=== PATIENT | male | born 1965 | race Caucasian/White ===

== ENCOUNTER 2017-04-26 20:06 | Inpatient (IN) | payer MEDICAID ==
[~2017-04-26] VITALS: Ht 185.4 cm; Wt 93.4 kg
[~2017-04-26 20:06] MED LIST: BACTRIM-DS1 EA PO; CELEBREX200 MG PO; LORAZEPAM0.5 MG PO; NORCO 10-325 T1 EACH PO; NORCO 5-325 TA1 EACH PO; PEPCID20 MG PO; PEPCID40 MG PO; TRAMADOL HCL50 MG PO; TRAZODONE HCL100 MG PO; TRILEPTAL150 MG PO; TRILEPTAL300 MG PO
[2017-04-26 20:26] VITALS: BP 147/85
[2017-04-26] MEDS ORDERED: Morphine Sulfate 4mg/ml Inj IM ONE (20:30)
[2017-04-26] MEDS ORDERED: Ketorolac 30mg Inj IM ONE (20:30)
[2017-04-26] MEDS ORDERED: HYDROmorphone 1mg/ml Carpuject IVP ONE (21:45)
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
[2017-04-26 22:06] VITALS: BP 143/77
[2017-04-26 22:43] LABS: BASOPHILS % (AUTO) 1.1 % (0.0-2.0); EOSINOPHILS % (AUTO) 2.9 % (0.0-3.0); LYMPHOCYTES % (AUTO) 29.3 % (20.0-45.0); MEAN CORPUSCULAR HEMOGLOBIN 31.2 PG (27.0-31.0); MEAN CORPUSCULAR HGB CONC 32.9 G/DL (32.0-36.0); MEAN CORPUSCULAR VOLUME 95 FL (80-99); MEAN PLATELET VOLUME 7.1 FL (6.5-10.1); MONOCYTES % (AUTO) 11.6 % (1.0-10.0); NEUTROPHILS % (AUTO) 55.1 % (45.0-75.0); PLATELET COUNT 209 K/UL (150-450); RED BLOOD COUNT 4.23 M/UL (4.70-6.10); RED CELL DISTRIBUTION WIDTH 12.9 % (11.6-14.8); WHITE BLOOD COUNT 7.3 K/UL (4.8-10.8)
[2017-04-26 23:13] LABS: ALANINE AMINOTRANSFERASE 125 U/L (12-78); ALBUMIN/GLOBULIN RATIO 1.2 (1.0-2.7); ANION GAP 10 mmol/L (5-15); ASPARTATE AMINO TRANSFERASE 271 U/L (15-37); CARBON DIOXIDE 26 MMOL/L (21-32); CHLORIDE 108 MMOL/L (98-107); CREATININE 0.9 MG/DL (0.55-1.30); GLOMERULAR FILTRATION RATE > 60 mL/min (>60); POTASSIUM 3.5 MMOL/L (3.5-5.1); SODIUM 144 MMOL/L (136-145)
[2017-04-26] MEDS ORDERED: Miralax 17gm pkt ORAL PRN (23:45)
[2017-04-26] MEDS ORDERED: Mylanta II UD 30ml ORAL PRN (23:45)
[2017-04-27] VITALS (8 sets, daily range): BP systolic 106–153; BP diastolic 61–98
[2017-04-27] MEDS: Morphine Sulfate 4mg/ml Inj IVP PRN ×2 (02:20→08:18)
[2017-04-27] MEDS: Zolpidem 5mg tab ORAL PRN (03:59)
[2017-04-27 08:02] LABS: BASOPHILS % (AUTO) 1.6 % (0.0-2.0); EOSINOPHILS % (AUTO) 7.2 % (0.0-3.0); LYMPHOCYTES % (AUTO) 34.7 % (20.0-45.0); MEAN CORPUSCULAR HEMOGLOBIN 31.4 PG (27.0-31.0); MEAN CORPUSCULAR HGB CONC 33.8 G/DL (32.0-36.0); MEAN CORPUSCULAR VOLUME 93 FL (80-99); MEAN PLATELET VOLUME 7.2 FL (6.5-10.1); MONOCYTES % (AUTO) 13.1 % (1.0-10.0); NEUTROPHILS % (AUTO) 43.5 % (45.0-75.0); PLATELET COUNT 188 K/UL (150-450); RED BLOOD COUNT 4.13 M/UL (4.70-6.10)
[2017-04-27] MEDS: Meloxicam 15 MG TAB ORAL SCH (08:17)
[2017-04-27 08:18] LABS: ALANINE AMINOTRANSFERASE 122 U/L (12-78); ALBUMIN/GLOBULIN RATIO 1.1 (1.0-2.7); ANION GAP 8 mmol/L (5-15); ASPARTATE AMINO TRANSFERASE 212 U/L (15-37); CALCIUM 8.6 MG/DL (8.5-10.1); CARBON DIOXIDE 27 MMOL/L (21-32); CHLORIDE 109 MMOL/L (98-107); CREATININE 0.9 MG/DL (0.55-1.30); GLOMERULAR FILTRATION RATE > 60 mL/min (>60); POTASSIUM 3.4 MMOL/L (3.5-5.1); SODIUM 144 MMOL/L (136-145); TOTAL PROTEIN 6.3 G/DL (6.4-8.2)
[2017-04-27] MEDS: OXcarbazepine 150mg tab ORAL SCH ×2 (08:18→18:51)
[2017-04-27] MEDS: Heparin 5000 units/ml inj SUBQ SCH ×2 (08:21→21:22)
[2017-04-27 08:24] LABS: THYROID STIMULATING HORMONE 2.553 uiU/mL (0.360-3.740)
--- NOTE | 2017-04-27 08:51 | Consultation ---
History of Present Illness General Chief Complaint: Present Illness Allergies: Coded Allergies: No Known Allergies (Unverified , 07/05/12) Medication History Scheduled Celecoxib* (Celebrex*), 200 MG PO BID, (Reported) Celecoxib* (Celebrex*), 200 MG PO BID, (Reported) Famotidine (Pepcid), 40 MG PO BID, (Reported) Famotidine (Pepcid), 20 MG PO BID, (Reported) Hydrocodone Bit/Acetaminophen 10-325* ([place] 10-325*), 1 TAB PO Q6H, (Reported) Hydrocodone Bit/Acetaminophen 5-325* ([place] 5-325*), 1 TAB PO Q6H Oxcarbazepine (Trileptal), 450 MG PO BID, (Reported) Oxcarbazepine (Oxcarbazepine), 450 MG PO BID, (Reported) Tramadol Hcl* (Ultram*), 100 MG PO Q6H, (Reported) Trazodone Hcl* (Desyrel*), 100 MG PO QHS, (Reported) Trimethoprim/Sulfamethoxazole (Bactrim Ds Tablet), 1 TAB PO BID Scheduled PRN Lorazepam* (Lorazepam*), 0.5 MG PO TID PRN, (Reported) Patient History Healthcare decision maker Resuscitation status Full Code Advanced Directive on File No Physical Exam Last 24 Hour Vital Signs Date Time Temp Pulse Resp B/P (MAP) Pulse Ox O2 Delivery O2 Flow Rate FiO2 04/27/17 08:40 97.8 67 20 106/68 96 Room Air 04/27/17 04:17 98.7 75 20 121/64 97 Room Air 04/27/17 02:00 98.9 80 19 153/98 97 Room Air 04/27/17 01:44 98.1 67 18 141/87 99 Room Air 04/27/17 01:30 98.1 67 18 141/87 99 Room Air 04/27/17 00:06 98.1 65 16 138/91 99 Room Air 04/26/17 22:06 98.1 92 16 143/77 98 Room Air 04/26/17 20:26 98.1 89 16 147/85 97 Room Air 04/26/17 20:13 98.1 89 16 147/85 97 Room Air Intake and Output 04/27/17 04/28/17 19:00 07:00 Intake Total 320 ml Balance 320 ml Intake Oral 320 ml Laboratory Tests Test 04/26/17 21:56 04/26/17 23:24 04/27/17 07:50 White Blood Count 7.3 K/UL (4.8-10.8) 5.0 K/UL (4.8-10.8) Red Blood Count 4.23 M/UL (4.70-6.10) L 4.13 M/UL (4.70-6.10) L Hemoglobin 13.2 G/DL (14.2-18.0) L 13.0 G/DL (14.2-18.0) L Hematocrit 40.1 % (42.0-52.0) L 38.4 % (42.0-52.0) L Mean Corpuscular Volume 95 FL (80-99) 93 FL (80-99) Mean Corpuscular Hemoglobin 31.2 PG (27.0-31.0) H 31.4 PG (27.0-31.0) H Mean Corpuscular Hemoglobin Concent 32.9 G/DL (32.0-36.0) 33.8 G/DL (32.0-36.0) Red Cell Distribution Width 12.9 % (11.6-14.8) 13.0 % (11.6-14.8) Platelet Count 209 K/UL (150-450) 188 K/UL (150-450) Mean Platelet Volume 7.1 FL (6.5-10.1) 7.2 FL (6.5-10.1) Neutrophils (%) (Auto) 55.1 % (45.0-75.0) 43.5 % (45.0-75.0) L Lymphocytes (%) (Auto) 29.3 % (20.0-45.0) 34.7 % (20.0-45.0) Monocytes (%) (Auto) 11.6 % (1.0-10.0) H 13.1 % (1.0-10.0) H Eosinophils (%) (Auto) 2.9 % (0.0-3.0) 7.2 % (0.0-3.0) H Basophils (%) (Auto) 1.1 % (0.0-2.0) 1.6 % (0.0-2.0) Sodium Level 144 MMOL/L (136-145) 144 MMOL/L (136-145) Potassium Level 3.5 MMOL/L (3.5-5.1) 3.4 MMOL/L (3.5-5.1) L Chloride Level 108 MMOL/L (98-107) H 109 MMOL/L (98-107) H Carbon Dioxide Level 26 MMOL/L (21-32) 27 MMOL/L (21-32) Anion Gap 10 mmol/L (5-15) 8 mmol/L (5-15) Blood Urea Nitrogen 12 mg/dL (7-18) 12 mg/dL (7-18) Creatinine 0.9 MG/DL (0.55-1.30) 0.9 MG/DL (0.55-1.30) Estimat Glomerular Filtration Rate > 60 mL/min (>60) > 60 mL/min (>60) Glucose Level 116 MG/DL (74-106) H 87 MG/DL (74-106) Calcium Level 9.0 MG/DL (8.5-10.1) 8.6 MG/DL (8.5-10.1) Total Bilirubin 0.3 MG/DL (0.2-1.0) 0.4 MG/DL (0.2-1.0) Aspartate Amino Transf (AST/SGOT) 271 U/L (15-37) H 212 U/L (15-37) H Alanine Aminotransferase (ALT/SGPT) 125 U/L (12-78) H 122 U/L (12-78) H Alkaline Phosphatase 96 U/L (46-116) 80 U/L (46-116) Total Protein 7.0 G/DL (6.4-8.2) 6.3 G/DL (6.4-8.2) L Albumin 3.8 G/DL (3.4-5.0) 3.3 G/DL (3.4-5.0) L Globulin 3.2 g/dL 3.0 g/dL Albumin/Globulin Ratio 1.2 (1.0-2.7) 1.1 (1.0-2.7) Urine Opiates Screen Negative (NEGATIVE) Urine Barbiturates Screen Negative (NEGATIVE) Phencyclidine (PCP) Screen Negative (NEGATIVE) Urine Amphetamines Screen Negative (NEGATIVE) Urine Benzodiazepines Screen Negative (NEGATIVE) Urine Cocaine Screen Negative (NEGATIVE) Urine Marijuana (THC) Screen Negative (NEGATIVE) Thyroid Stimulating Hormone (TSH) 2.553 uiU/mL (0.360-3.740) Height (Feet): 6 Height (Inches): 1.00 Weight (Pounds): 206 Medications Current Medications Medications (Trade) Dose Ordered Sig/Brice Route PRN Reason Start Time Stop Time Status Last Admin Dose Admin Acetaminophen (Tylenol) 650 mg Q4H PRN ORAL fever 04/26/17 23:45 05/26/17 23:44 Al Hydroxide/Mg Hydroxide (Mylanta II) 30 ml Q6H PRN ORAL dyspepsia 04/26/17 23:45 05/26/17 23:44 Dextrose (Dextrose 50%) STAT PRN IV Hypoglycemia 04/26/17 23:45 05/26/17 23:44 Heparin Sodium (Porcine) (Heparin 5000 units/ml) 5,000 units EVERY 12 HOURS SUBQ 04/27/17 09:00 05/27/17 08:59 04/27/17 08:21 Lorazepam (Ativan 2mg/ml 1ml) 0.5 mg Q4H PRN IV For Anxiety 04/26/17 23:45 05/03/17 23:44 Meloxicam (Mobic) 15 mg DAILY ORAL 04/27/17 09:00 05/27/17 08:59 04/27/17 08:17 Morphine Sulfate (Morphine Sulfate) 4 mg Q4H PRN IVP For Pain 7-10 04/26/17 23:45 05/03/17 23:44 04/27/17 08:18 Ondansetron HCl (Zofran) 4 mg Q6H PRN IVP Nausea & Vomiting 04/26/17 23:45 05/26/17 23:44 Oxcarbazepine (Trileptal) 450 mg BID ORAL 04/27/17 09:00 05/27/17 08:59 04/27/17 08:18 Polyethylene Glycol (Miralax) 17 gm HSPRN PRN ORAL Constipation 04/26/17 23:45 05/26/17 23:44 Trazodone HCl (Desyrel) 100 mg QHS ORAL 04/27/17 21:00 05/27/17 20:59 Zolpidem Tartrate (Ambien) 5 mg HSPRN PRN ORAL Insomnia 04/26/17 23:45 05/03/17 23:44 04/27/17 03:59 Assessment/Plan Assessment/Plan (1) Lumbar Radiculopathy (2) Lumbar Herniated disc (3) Lumbago Seen Dictated DAYRON TUBBS Apr 27, 2017 08:51
[2017-04-27] MEDS: LORazepam Inj 2mg/ml 1ml IV PRN (08:59)
[2017-04-27] MEDS ORDERED: celeBREX 200mg Cap **SURGERY PATIENTS ONLY ORAL SCH (09:00)
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
--- NOTE | 2017-04-27 16:40 | Consultation ---
Consult Note Consult Note [id number] TEAGAN KERR M.D. Apr 27, 2017 16:40
[2017-04-27] MEDS ORDERED: HYDROmorphone 1mg/ml Carpuject IVPB PRN (18:45)
[2017-04-27 18:57] LABS: AMMONIA 27 umol/L (11.2-31.7)
[2017-04-27 20:19] LABS: ALANINE AMINOTRANSFERASE 147 U/L (12-78); ASPARTATE AMINO TRANSFERASE 210 U/L (15-37); BILIRUBIN,DIRECT < 0.1 MG/DL (0.0-0.3); PSA TOTAL 2.9 ng/mL (0.0-4.0); TOTAL PROTEIN 6.4 G/DL (6.4-8.2)
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
[2017-04-27] MEDS: HYDROmorphone 1 MG in NS 55 ML IVPB PRN (20:51)
[2017-04-27] MEDS ORDERED: TraZODone 100mg tab ORAL SCH (21:00)
--- NOTE | 2017-04-27 22:00 | Consultation ---
DATE OF CONSULTATION: 04/27/2017 NEUROLOGICAL CONSULTATION CONSULTING PHYSICIAN: Trae Guerrero M.D. REQUESTING PHYSICIAN: Nina Bowman M.D. HISTORY OF PRESENT ILLNESS: This 51-year-old male seen in neurological consultation to evaluate intractable low back pain. According to the patient, he has a long history of pain that dates back to 1994 when he had a crush injury to his left foot ankle, developed reflex sympathetic dystrophy and left foot drop. With continuous physical therapy, symptoms gradually improved, but still remaining with the left foot drop. Then, around 2001, with no obvious reason, he started to develop intermittent low back pain, which became excruciating starting approximately in December of this year with no obvious reason. Pain became severe, interfering with his daily activities. He was placed on oxycodone, evaluated by Pain Management, had an epidural block, which relieved the pain for two to two and a half months, but now pain is back to be quite severe. The patient was sent into emergency room. Since he moved in from [place] and presented with severe pain, he requires to establish a new treatment team. On arrival, vital signs included blood pressure 147/85 and temperature 98.1. Most recent MRI of the lumbar spine was obtained in [place] on 01/30/2017. This revealed annular disk bulging L3-L4 and L4-L5, but also central disk herniation at L5-S1 superimposed on annular disk bulge impinging upon the thecal sac and right and left S1 nerve roots. There was a mild bilateral foraminal stenosis. There was no bone abnormalities and normal conus medullaris. The patient indicates that over the last few months, he developed a pulling sensation in the right groin region, but also severe "like a torch" burning sensation in both feet, now progressing. Following current admission, lab work was obtained revealing mild anemia, hemoglobin 13.2, and hematocrit 40.1. Chemistry panel with glucose 116, elevated AST 271, ALT 125, and low albumin 3.3. Toxicology was negative. PAST MEDICAL HISTORY: This includes a history of bipolar disorder. FAMILY HISTORY: Noncontributory. SOCIAL HISTORY: The patient worked previously as an actor. Last job was in summer. He denies alcohol or illicit drug abuse. He was previously smoking, but stopped few years ago. He had a homosexual contact, but has negative HIV, maintained only on preventative treatment. MEDICATIONS: His treatment list included acyclovir, Soma, Neurontin, Lamictal, Naprosyn, Zofran, Roxicodone 5 mg, Protonix, amylase, Mycostatin, Elavil in the past, Truvada, and Atarax. REVIEW OF SYMPTOMS: A 12-point review of symptoms was obtained and it was negative except those in HPI. Now, the patient also informs me that he has some aches and pains in his upper back and neck, at times headaches. PHYSICAL EXAMINATION: GENERAL: A well-developed, well-nourished man, found to be asleep. He was arousable. VITAL SIGNS: His vital signs now remained stable. He is afebrile. HEENT: Head is normocephalic. No evidence of trauma. Eyes, ears, and throat are clear. NECK: Supple. No meningeal signs. MUSCULOSKELETAL EXAMINATION: Unremarkable except palpable tenderness, predominantly on percussion in the lumbar paraspinal region, but also there is a seizure at the distal aspect of left lower extremity, tenderness on palpation of right groin region. No deformities noted. Peripheral pulses 1+ and symmetric. MENTAL STATUS: The patient is alert and oriented x3 with no evidence of aphasia or apraxia. Cognitive function normal. Emotionally labile, tense, and anxious. CRANIAL NERVE II: Pupils are both responding to light and accommodation. Extraocular movements intact. No nystagmus. CRANIAL NERVE V: Normal corneal responses. CRANIAL NERVE VII: No facial asymmetry. CRANIAL NERVE VIII: Normal hearing. CRANIAL NERVES IX THROUGH XII: Within normal limits. MOTOR EXAMINATION: Normal muscle tone. Strength 5/5 in all extremities except left footdrop. Deep tendon reflexes 1+ bilaterally in both upper extremities, reduced 1+ both knee jerks, absent both ankle jerks. Plantar response is flexor. SENSORY EXAMINATION: Normal to pinprick and light touch, except dysesthesia and low pinprick sensation to left foot and ankle. Gait is stable, but limping to the left. Using orthotic shoes. IMPRESSION: 1. Chronic pain syndrome, opiate dependent. 2. Persistent severe low back pain in the setting of a mild-moderate lumbar spondylosis, predominantly L5-S1. 3. Sensory polyneuropathy, etiology undetermined. 4. Abnormal liver enzymes. 5. Bipolar disorder. 6. Status post a left foot crush injury with residual left foot drop and reflex sympathetic dystrophy. RECOMMENDATION: Laboratory work to include sedimentation rate, MESHA, B12, folate, thyroid function, glycated hemoglobin, hepatitis panel, HIV, heavy metal screen, serum protein electrophoresis, and PSA. It is unavailable at this facility, but outpatient EMG and nerve conduction study of both lower extremities will be considered. Treatment will include Elavil 50 mg at bedtime. Continue with Lamictal 200 mg daily. Start on muscle relaxants (Flexeril 10 mg t.i.d.). Continue with opiates only per Pain Management. The patient was offered nonsteroidal agents, but he refused stating that he would like his stomach to get some rest from many years of use of nonsteroidals. PT and OT assessment. Thank you for allowing me to see this interesting patient in neurological consultation. Trae Guerrero M.D. DR: ROLANDO JOB#: [id number] CC:
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
[2017-04-28 04:00] VITALS: BP 138/78
--- NOTE | 2017-04-28 08:32 | General Progress Note ---
Assessment/Plan Assessment/Plan (1) Lumbar Radiculopathy (2) Lumbar Herniated disc (3) Lumbago MRI pending. Pt will be continued on Percocet and Dilaudid. D/w Dr. Siddiqui and he concurred. Subjective Date patient seen: Apr 28, 2017 Time patient seen: 07:15 - am Allergies: Coded Allergies: No Known Allergies (Unverified , 07/05/12) Subjective REVIEW OF SYSTEMS: Denies rash, fever, chills, sweating, dizziness, drowsiness, sore throat, or change in weight. No shortness of breath, chest pain, or cough. No nausea, vomiting, diarrhea, or blood in the stool or urine. No bowel or bladder incontinence. No dysuria. He is complaining of low back pain. SUBJECTIVE: Patient is in bed and has no signs of distress or pain at this time. He was started on Dilaudid 1mg IVPB Q6H PRN severe pain and an MRI of the lumbar spine was ordered due to the severity of his pain. Objective Last 24 Hour Vital Signs Date Time Temp Pulse Resp B/P (MAP) Pulse Ox O2 Delivery O2 Flow Rate FiO2 04/28/17 04:00 98.0 79 21 138/78 98 Room Air 04/27/17 21:26 98.0 66 20 106/61 97 Room Air 04/27/17 16:23 98.1 77 19 109/71 98 Room Air 04/27/17 15:45 98.4 04/27/17 12:40 98.4 74 20 148/80 95 Room Air 04/27/17 08:40 97.8 67 20 106/68 96 Room Air Laboratory Tests 04/27/17 18:05: Total Bilirubin 0.2, Direct Bilirubin < 0.1, Aspartate Amino Transf (AST/SGOT) 210H, Alanine Aminotransferase (ALT/SGPT) 147H, Alkaline Phosphatase 90, Ammonia 27, Total Protein 6.4, Total Protein (PEP) [Pending], Albumin 3.4, Albumin (PEP) [Pending], Globulin (PEP) [Pending], Albumin/Globulin Ratio [ Pending], Ncsuq-5-Ecesyfrqa [Pending], Scbqq-9-Ngigulcvo [Pending], Beta Globulins [Pending], Beta Gamma Globulin [Pending], PEP Abnormal Protein Bands [ Pending], Protein Electrophoresis Interpret [Pending], Prostate Specific Antigen 2.9, Vitamin B12 Level 606, Anti-Nuclear Antibody Screen [Pending], HIV (1&2) Antibody Rapid Negative Height (Feet): 6 Height (Inches): 1.00 Weight (Pounds): 206 Objective GENERAL: Alert, awake, and oriented x3. HEENT: PERRLA. NECK: Range of motion is full in all directions. No tenderness to paracervical muscles. No adenopathy. LUNGS: Clear. HEART: Regular. ABDOMEN: Benign. BACK: Range of motion is decreased in flexion and extension with tenderness to paraspinal muscles. No tenderness to trapezius and rhomboid muscles. EXTREMITIES: No cyanosis. No clubbing. No edema. NEURO: No changes. DAYRON TUBBS Apr 28, 2017 08:32
[2017-04-28] MEDS: OXcarbazepine 150mg tab ORAL SCH ×2 (08:40→18:00)
[2017-04-28 08:41] VITALS: BP_SYST 140; BP_SYST 95; BP_DIAS 68; BP_DIAS 87
[2017-04-28] MEDS: Meloxicam 15 MG TAB ORAL SCH (08:41)
[2017-04-28] MEDS: Heparin 5000 units/ml inj SUBQ SCH ×2 (08:42→21:30)
[2017-04-28] MEDS ORDERED: HYDROmorphone 1mg/ml Carpuject ONE (10:17)
[2017-04-28] MEDS: HYDROmorphone 1 MG in NS 55 ML IVPB PRN (10:34)
--- NOTE | 2017-04-28 11:49 | Neurology Progress Note ---
Interim History Interim History ROS Limited/Unobtainable: No Complaints: excrut LBP. L arm numbness, unable to complete MRI Events: no change, "opiates ok but toomuch sedatives" Objective Physical Exam Last Vital Signs Date Time Temp Pulse Resp B/P (MAP) Pulse Ox O2 Delivery O2 Flow Rate FiO2 04/28/17 08:41 97.3 61 18 140/87 99 Room Air Laboratory Tests Test 04/27/17 18:05 04/28/17 10:30 Total Bilirubin 0.2 MG/DL (0.2-1.0) Direct Bilirubin < 0.1 MG/DL (0.0-0.3) Aspartate Amino Transf (AST/SGOT) 210 U/L (15-37) H Alanine Aminotransferase (ALT/SGPT) 147 U/L (12-78) H Alkaline Phosphatase 90 U/L (46-116) Ammonia 27 umol/L (11.2-31.7) Total Protein 6.4 G/DL (6.4-8.2) Total Protein (PEP) Pending Albumin 3.4 G/DL (3.4-5.0) Albumin (PEP) Pending Globulin (PEP) Pending Albumin/Globulin Ratio Pending Vktql-3-Khgbzeqac Pending Xonol-0-Svonwhggg Pending Beta Globulins Pending Beta Gamma Globulin Pending PEP Abnormal Protein Bands Pending Protein Electrophoresis Interpret Pending Prostate Specific Antigen 2.9 ng/mL (0.0-4.0) Vitamin B12 Level 606 PG/ML (193-986) Anti-Nuclear Antibody Screen Pending HIV (1&2) Antibody Rapid Negative (NEGATIVE) Hepatitis A IgM Antibody Pending Hepatitis B Surface Antigen Pending Hepatitis B Core IgM Antibody Pending Hepatitis C Antibody Pending General: well developed, well nourished, other - i parham pain very tender LB Head: normocophalic, atraumatic Neck: no rigidity Neurologic Exam Mental Status: awake, alert, oriented x4, normal cognition, good mathematical skills, normal recent memory, normal remote memory, preserved visuospatial function, other - anxious Speech: normal speech, no dysarthia Language: normal language, no aphasia Cranial Nerve II: fundus normal, visual gunn, no papilledema Cranial Nerves III, IV, : PERRLA, EOMI, pupils Cranial Nerve V: normal facial sensations, temporales function normal, masseters function normal, pterygoids function normal Cranial Nerve VII: no facial asymmetry, normal facial expressions Cranial Nerve VIII: normal hearing, no nystagmus Cranial Nerve IX: normal palate elevation, gag response Cranial Nerve X: no voice hoarseness Cranial Nerve XI: SCM symmetric, trapezii function normal Cranial Nerve XII: tongue midline, no tongue atrophy/fasciculations Motor System: normal muscle tone, strength 5/5, no involuntary movement, no muscle wasting, other - except L foot drop Sensory: other - dysesthesia L foot Coordination: normal finger to nose bilaterally, normal heel to porras bilaterally, negative Romberg test Deep Tendon Reflexes: 0 bicep (L), 0 bicep (R), 0 tricep (L), 0 tricep (R), 0 brachioradialis (L), 0 brachioradialis (R), 0 knee (L), 0 knee (R), 0 ankle (L) , 0 ankle (R) Reflexes: mute plantar (L), mute plantar (R) Stance: normal Gait: other - limping Impression/Recommendations Problems: (1) L5-SI discogenic disease with radiculopathy. (2) Intractable back pain (3) Affective bipolar disorder (4) old L foot drop (5) Opioid dependence Status: not improved, unchanged Recommendations psych eval d/c un essential pain mgmt CORBIN CRUZ Apr 28, 2017 11:49
[2017-04-28 12:00] VITALS: BP 124/84
[2017-04-28] MEDS ORDERED: LORazepam Inj 2mg/ml 1ml IV ONE (12:00)
[2017-04-28 12:19] LABS: A/G RATIO 1.3 (0.7-1.7); ABNORMAL PROTEIN BAND 1 Not Observed g/dL (Not Observed); ALBUMIN 3.5 g/dL (2.9-4.4); ALPHA-1 GLOBULIN 0.2 g/dL (0.0-0.4); ALPHA-2 GLOBULIN 0.6 g/dL (0.4-1.0); BETA GLOBULIN 0.7 g/dL (0.7-1.3); GAMMA GLOBULIN 1.1 g/dL (0.4-1.8); GLOBULIN, TOTAL 2.6 g/dL (2.2-3.9); TOTAL PROTEIN 6.1 g/dL (6.0-8.5)
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
[2017-04-28] MEDS ORDERED: Dolutegravir Sodium 50mg tab ORAL SCH (13:30)
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
[2017-04-28 16:00] VITALS: BP 111/70
[2017-04-28] MEDS: LORazepam Inj 2mg/ml 1ml IV PRN ×2 (16:58→21:29)
[2017-04-28 20:00] VITALS: BP 122/79
[2017-04-28] MEDS ORDERED: TraZODone 100mg tab ORAL PRN (21:00)
[2017-04-28 23:54] VITALS: BP 112/68
[2017-04-29 08:47] VITALS: BP 120/83
--- NOTE | 2017-04-29 08:50 | General Progress Note ---
Assessment/Plan Assessment/Plan (1) Lumbar Radiculopathy (2) Lumbar Herniated disc (3) Lumbago MRI results pending. Pt will be continued on Percocet and Dilaudid. We will start Soma 350mg PO 1 tab Q8H PRN muscle spasm. D/w Dr. Siddiqui and he concurred. Subjective Date patient seen: Apr 29, 2017 Time patient seen: 07:15 - am Allergies: Coded Allergies: No Known Allergies (Unverified , 07/05/12) Subjective REVIEW OF SYSTEMS: Denies rash, fever, chills, sweating, dizziness, drowsiness, sore throat, or change in weight. No shortness of breath, chest pain, or cough. No nausea, vomiting, diarrhea, or blood in the stool or urine. No bowel or bladder incontinence. No dysuria. He is complaining of low back pain. SUBJECTIVE: Patient sitting up. He continues to have c/o severe pain MRI was taken results pending. Pt reports that the pain is a 6/10 on the Percocet and Dilaudid however explains that the Baclofen has given him no relief from his spasms. Objective Last 24 Hour Vital Signs Date Time Temp Pulse Resp B/P (MAP) Pulse Ox O2 Delivery O2 Flow Rate FiO2 04/28/17 23:54 98.4 80 18 112/68 94 Room Air 04/28/17 22:34 98.2 04/28/17 20:00 98.2 81 18 122/79 97 Room Air 04/28/17 16:00 97.4 82 19 111/70 95 Room Air 04/28/17 12:00 98.2 76 19 124/84 97 Room Air 04/28/17 11:00 97.3 Laboratory Tests 04/28/17 10:30: Hepatitis A IgM Antibody [Pending], Hepatitis B Surface Antigen [Pending], Hepatitis B Core IgM Antibody [Pending], Hepatitis C Antibody [Pending] Height (Feet): 6 Height (Inches): 1.00 Weight (Pounds): 206 Objective GENERAL: Alert, awake, and oriented x3. HEENT: PERRLA. NECK: Range of motion is full in all directions. No tenderness to paracervical muscles. No adenopathy. LUNGS: Clear. HEART: Regular. ABDOMEN: Benign. BACK: Range of motion is decreased in flexion and extension with tenderness to paraspinal muscles. No tenderness to trapezius and rhomboid muscles. EXTREMITIES: No cyanosis. No clubbing. No edema. NEURO: No changes. DAYRON TUBBS. Apr 29, 2017 08:50
[2017-04-29] MEDS: Meloxicam 15 MG TAB ORAL SCH (08:56)
[2017-04-29] MEDS: OXcarbazepine 150mg tab ORAL SCH ×2 (08:56→18:00)
[2017-04-29] MEDS: Heparin 5000 units/ml inj SUBQ SCH ×2 (08:58→20:33)
[2017-04-29] MEDS: LORazepam Inj 2mg/ml 1ml IV PRN (09:15)
--- NOTE | 2017-04-29 11:37 | Diagnostic Imaging Report ---
Indication: Back pain Technique: MRI examination of the Lumbar spine was performed in a 1.5 Shaina magnet. Sequences obtained include sagittal and axial T1 and T2 fast spin echo, and sagittal STIR. Comparison: none Findings: There is a fairly wide based disc protrusion at L5-S1 associated with desiccation and narrowing of the disc. The herniated disc abuts the traversing S1 nerve roots bilaterally. There is no significant central stenosis or narrowing of the lateral recess. Facets appear moderately hypertrophic at this level. There is no significant foraminal stenosis. There is mild narrowing of L3-4 disc. No neural impingement or stenosis of the canal demonstrated. There is moderate facet arthropathy. At the L4-5 disc shows a left far lateral mild protrusion and fissure which is seen as a curvilinear focus of T2 hyperintensity along the annulus margin. There is slight narrowing of the left neural foramen at this level. There is mild right foraminal stenosis as well. Moderate facet arthropathy noted contributing to the foraminal stenosis. L2-3 and L1-2 appear unremarkable. Mild hypertrophy of the facets noted at both of these levels. The visualized part of the distal spinal cord is normal in appearance. The conus medullaris is seen at about T12. Impression: Central posterior disc protrusion at L5-S1 abutting the right and left traversing S1 nerve roots. Please correlate clinically. L4-5 left far lateral disc protrusion/annular fissure with narrowing of the left neural foramen. There maybe some compression of the exiting left L4 nerve root. Mild right foraminal stenosis also demonstrated. Multilevel facet arthropathy moderate at L4-5 and L5-S1. Mild at the other levels.
[2017-04-29 12:04] VITALS: BP 121/78
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
[2017-04-29] MEDS: HYDROmorphone 1 MG in NS 55 ML IVPB PRN (14:59)
[2017-04-29 15:41] VITALS: BP 121/76
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
[2017-04-29 20:00] VITALS: BP 119/78
[2017-04-29] MEDS: oxyCODONE 15mg IR tab ORAL PRN (20:32)
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
[2017-04-30] VITALS: BP 120/81
[2017-04-30] MEDS: Zolpidem 5mg tab ORAL PRN (00:41)
[2017-04-30] MEDS: oxyCODONE 15mg IR tab ORAL PRN ×3 (00:42→14:31)
[2017-04-30] MEDS: LORazepam Inj 2mg/ml 1ml IV PRN (02:43)
[2017-04-30 04:00] VITALS: BP 105/67
[2017-04-30] MEDS ORDERED: Morphine Sulfate 4mg/ml Inj IVP PRN (04:15)
[2017-04-30 08:00] VITALS: BP 118/81
[2017-04-30] MEDS: OXcarbazepine 150mg tab ORAL SCH (09:12)
[2017-04-30] MEDS: Meloxicam 15 MG TAB ORAL SCH (09:13)
[2017-04-30] MEDS: Heparin 5000 units/ml inj SUBQ SCH (09:16)
--- NOTE | 2017-04-30 09:20 | General Progress Note ---
Assessment/Plan Assessment/Plan (1) Lumbar Radiculopathy (2) Lumbar Herniated disc (3) Lumbago Pt will be continued on medications as per exhibitions and collections manager it was informed to the exhibitions and collections manager that we will be signing off the case at this time. RX home will be provided by exhibitions and collections manager. D/w Dr. Siddiqui and he concurred. Subjective Date patient seen: Apr 30, 2017 Time patient seen: 07:00 - am Allergies: Coded Allergies: No Known Allergies (Unverified , 07/05/12) Subjective REVIEW OF SYSTEMS: Denies rash, fever, chills, sweating, dizziness, drowsiness, sore throat, or change in weight. No shortness of breath, chest pain, or cough. No nausea, vomiting, diarrhea, or blood in the stool or urine. No bowel or bladder incontinence. No dysuria. He is complaining of low back pain. SUBJECTIVE: Patient continues to c/o pain. MRI was performed and reviewed with the patient. He was started on Medrol dose pack, however it was discontinued due to him refusing. Pt also was discontinued off the Dilaudid and started as per exhibitions and collections manager on Oxycodone 30mg and Morphine 4mg IV. We do not recommend patient to be on these medications and it was d/w the the exhibitions and collections manager. Do to this it was informed to the exhibitions and collections manager that we will be signing off the case at this time. Objective Last 24 Hour Vital Signs Date Time Temp Pulse Resp B/P (MAP) Pulse Ox O2 Delivery O2 Flow Rate FiO2 04/30/17 08:00 98.6 75 19 118/81 95 Room Air 04/30/17 04:00 97.8 76 19 105/67 96 Room Air 04/30/17 00:00 97.4 75 18 120/81 98 Room Air 04/29/17 20:00 97.7 83 18 119/78 97 Room Air 04/29/17 17:45 98.7 04/29/17 15:41 98.7 82 20 121/76 96 Room Air 04/29/17 15:25 98.7 04/29/17 12:35 98.1 04/29/17 12:04 98.1 83 20 121/78 94 Room Air Height (Feet): 6 Height (Inches): 1.00 Weight (Pounds): 206 Objective GENERAL: Alert, awake, and oriented x3. HEENT: PERRLA. NECK: Range of motion is full in all directions. No tenderness to paracervical muscles. No adenopathy. LUNGS: Clear. HEART: Regular. ABDOMEN: Benign. BACK: Range of motion is decreased in flexion and extension with tenderness to paraspinal muscles. No tenderness to trapezius and rhomboid muscles. EXTREMITIES: No cyanosis. No clubbing. No edema. NEURO: No changes. Procedure: MRI L Spine no Contrast Impression: Central posterior disc protrusion at L5-S1 abutting the right and left traversing S1 nerve roots. Please correlate clinically. L4-5 left far lateral disc protrusion/annular fissure with narrowing of the left neural foramen. There maybe some compression of the exiting left L4 nerve root. Mild right foraminal stenosis also demonstrated. Multilevel facet arthropathy moderate at L4-5 and L5-S1. Mild at the other levels. DAYRON TUBBS Apr 30, 2017 09:20
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
[2017-04-30 12:00] VITALS: BP 124/79
[2017-04-30] MEDS ORDERED: OXYCODONE IR15 MG ORAL (14:29)
--- NOTE | 2017-04-30 15:09 | Diagnostic Imaging Report ---
Indication:Abdominal pain Technique: Grayscale and duplex Doppler imaging of the abdomen performed. Comparison: None Findings: Liver is echogenic. The demonstrated part of the pancreas, gallbladder, aorta and IVC, both kidneys, spleen appear unremarkable. There is no biliary ductal dilatation identified. Doppler evaluation of the main portal vein shows patency. There is no ascites. No hydronephrosis seen. CBD is 4.4 mm Impression: Fatty liver
[2017-04-30 16:00] VITALS: BP 125/85
--- NOTE | 2017-04-30 22:40 | General Progress Note ---
Subjective Allergies: Coded Allergies: No Known Allergies (Unverified , 07/05/12) Subjective the pt is reisiting discharge he was told that he is cleared script was written the pt is not at imminent dts Objective Last 24 Hour Vital Signs Date Time Temp Pulse Resp B/P (MAP) Pulse Ox O2 Delivery O2 Flow Rate FiO2 04/30/17 16:00 98.2 88 19 125/85 96 Room Air 04/30/17 12:00 98.3 81 19 124/79 98 Room Air 04/30/17 08:00 98.6 75 19 118/81 95 Room Air 04/30/17 04:00 97.8 76 19 105/67 96 Room Air 04/30/17 00:00 97.4 75 18 120/81 98 Room Air Intake and Output 04/30/17 05/01/17 19:00 07:00 # Voids 4 Height (Feet): 6 Height (Inches): 1.00 Weight (Pounds): 206 Keiko Salguero M.D. Apr 30, 2017 22:40
--- NOTE | 2017-05-03 10:24 | Discharge Summary ---
Discharge Summary Hospital Course Date of Admission Apr 27, 2017 at 00:56 Date of Discharge Apr 30, 2017 at 18:40 Admitting Diagnosis intractable back pain PAGE Leo is a 51 year old male who was admitted on Apr 27, 2017 at 00:56 for Intractable Back Pain Hospital Course dc summary [id number] Discharge Condition Upon Discharge: stable Discharge Disposition Patient was discharged to Home (01) Discharge Diagnoses: Discharge Instructions Discharge Instructions Special Instructions I have been assigned to complete a D/C Summary on this account. I was not involved in the patient management Alexa Geller NP ([place]) May 03, 2017 10:24
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
== END 2017-04-30 18:40 | disposition home or self-care (01) | DRG 347 ==
LOC: EMR 20:48 → EDBEDREQ 23:41 → 3E 04-27 00:56
DX: M47.26 Other spondylosis with radiculopathy, lumbar region (principal); F11.20 Opioid dependence, uncomplicated; K76.0 Fatty (change of) liver, not elsewhere classified; M51.16 Intervertebral disc disorders with radiculopathy, lumbar region; G89.4 Chronic pain syndrome; G60.8 Other hereditary and idiopathic neuropathies; F31.9 Bipolar disorder, unspecified; F60.81 Narcissistic personality disorder; B00.9 Herpesviral infection, unspecified; M21.372 Foot drop, left foot; G90.50 Complex regional pain syndrome I, unspecified; T76.21XA Adult sexual abuse, suspected, initial encounter; K21.9 Gastro-esophageal reflux disease without esophagitis; F41.8 Other specified anxiety disorders; Z87.891 Personal history of nicotine dependence
CPT/HCPCS: 36415; 72148; 76700; 80053; 80076; 80307; 82140; 82607; 84153; 84165; 84443; 85025; 86039; 86703; 86705; 86709; 86803; 87324; 87340; 99285; J2405

== ENCOUNTER 2017-06-11 05:42 | Emergency (ER) | payer MEDICAID ==
[~2017-06-11] VITALS: Ht 188 cm; Wt 90.7 kg
[~2017-06-11 05:42] MED LIST changes: +OXYCODONE IR15 MG ORAL
[2017-06-11 05:55] VITALS: BP 122/81
[2017-06-11] MEDS ORDERED: UNOBMED (05:55)
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
[2017-06-11 06:15] VITALS: BP 135/78
== END 2017-06-11 06:15 | disposition home or self-care (01) ==
LOC: EMR 06:01
DX: M54.5 Low back pain (principal); G89.29 Other chronic pain; F11.20 Opioid dependence, uncomplicated; M21.379 Foot drop, unspecified foot; G62.9 Polyneuropathy, unspecified
CPT/HCPCS: 99283

== ENCOUNTER 2017-06-11 08:23 | Emergency (ER) | payer MEDICAID ==
[~2017-06-11] VITALS: Ht 188 cm; Wt 91.6 kg
[~2017-06-11 08:23] MED LIST changes: +UNOBMED
[2017-06-11 08:37] VITALS: BP 119/76
[2017-06-11] MEDS ORDERED: Ketorolac 60mg Inj IM ONE (09:00)
[2017-06-11] MEDS ORDERED: Methocarbamol 750mg tab ORAL ONE (09:00)
[2017-06-11 10:00] VITALS: BP 119/76
--- NOTE | 2017-06-11 12:46 | Emergency Room Report ---
History of Present Illness General Chief Complaint: Back Pain-No Injury Source: Patient Present Illness HPI 51-year-old male with pmhx of chronic back pain p/w back pain for 6 days. Patient states that he just got back from [place] and tried to "start a new life " there. States that that is a mistake, now he move back to [place], has been sleeping in an uncomfortable couch at his friend's house. Which has exacerbated his back pain Pain is localized to the lateral lower back, sharp in nature, radiating down leg. Movement worsens pain. Patient has taken his tramadol with some relief Patient has experienced this similar pain in the past. Denies trauma. Denies lower extremity weakness/numbness, no bowel/bladder retention or incontinence, saddle anesthesia. Denies fever, chills, abdominal pain, n/v, dysuria/hematuria. No history of IVDA Patient was already seen in the emergency room last night, however likely took too much of his medication, was very sleepy, was found in the waiting room, and was registered again be seen Allergies: Coded Allergies: No Known Allergies (Unverified , 07/05/12) Patient History Past Medical History: see triage record Past Surgical History: none Pertinent Family History: none Reviewed Nursing Documentation: PMH: Agreed, PSxH: Agreed Nursing Documentation-PMH Past Medical History: No History, Except For Hx Cardiac Problems: No Hx Cancer: No Hx Gastrointestinal Problems: Yes Hx Neurological Problems: Yes - foot drop Hx Peripheral Neuropathy: Yes Review of Systems All Other Systems: negative except mentioned in HPI Physical Exam Vital Signs Date Time Temp Pulse Resp B/P (MAP) Pulse Ox O2 Delivery O2 Flow Rate FiO2 06/11/17 08:32 97.7 93 20 119/76 100 Room Air Sp02 EP Interpretation: reviewed, normal General Appearance: alert, GCS 15, non-toxic, mild distress Head: normocephalic, atraumatic Eyes: bilateral eye normal inspection, bilateral eye PERRL, bilateral eye EOMI ENT: normal ENT inspection, normal pharynx, normal voice, moist mucus membranes Neck: normal inspection, full range of motion, supple Respiratory: normal inspection, lungs clear, normal breath sounds, no respiratory distress, no retraction, no wheezing, speaking full sentences, chest symmetrical Cardiovascular #1: normal inspection, regular rate, rhythm, no edema, normal capillary refill Cardiovascular #2: 2+ radial (R), 2+ radial (L) Gastrointestinal: normal inspection, non tender, soft, non-distended, no guarding Genitourinary: no CVA tenderness Musculoskeletal: other - BL paraspinal lower lumbar tendenress no midline tenderness Neurologic: normal inspection, alert, oriented x3, responsive, motor strength/ tone normal, sensory intact, normal gait, speech normal Psychiatric: normal inspection, judgement/insight normal, memory normal Skin: normal inspection, normal color, no rash, warm/dry, well hydrated, normal turgor Medical Decision Making Diagnostic Impression: Primary Impression: Chronic pain Additional Impression: Low back pain ER Course 51-year-old male with chronic back pain p/w back pain DDX: Likely musculoskeletal back pain vs. muscular strain vs. sciatica Lumbar fracture is unlikely given patients age, no midline tenderness, no history of trauma, and that patient is ambulatory. Therefore, at this time no imaging is indicated Serious diagnoses such as cord compression, epidural abscess is unlikely in this patient given the clinical scenario and abscess of neurological symptoms or findings. Patient appears nontoxic. Plan: Toradol, robaxin ER course: Patient has remained nontoxic appearing and ambulatory in the ED. Pain improved w/ medications Disposition: Patient will be discharged to home Strict precautions discussed with patient on when to emergently return to the ED which includes severe/worsening back pain, leg weakness/numbness, urinary retention/incontinence, fever or chills, which may indicate severe illness. Patient is to follow up with their PMD within 5 days. Patient agrees with plan. Please note that this Emergency Department Report was dictated using [employer]math coach technology software, occasionally this can lead to erroneous entry secondary to interpretation by the dictation equipment. Last Vital Signs Date Time Temp Pulse Resp B/P (MAP) Pulse Ox O2 Delivery O2 Flow Rate FiO2 06/11/17 10:00 97.7 84 20 119/76 100 Room Air Disposition: HOME, SELF-CARE Condition: Stable Patient Instructions: Sciatica, Back Pain, Adult Additional Instructions: please follow up with your pain specialist Vanessa Araujo M.D. Jun 11, 2017 12:46
== END 2017-06-11 10:00 | disposition home or self-care (01) ==
LOC: EMR 08:51
DX: G89.29 Other chronic pain (principal); M54.5 Low back pain; M21.339 Wrist drop, unspecified wrist; G62.9 Polyneuropathy, unspecified
CPT/HCPCS: 96372; 99283

== ENCOUNTER 2017-06-11 17:19 | Emergency (ER) | payer MEDICAID ==
[~2017-06-11] VITALS: Ht 182.9 cm; Wt 90.7 kg
[2017-06-11 17:20] VITALS: BP 110/90
[2017-06-11 18:50] VITALS: BP 114/92
--- NOTE | 2017-06-11 21:14 | Emergency Room Report ---
History of Present Illness General Chief Complaint: Back Pain-No Injury Source: Patient, EMS Present Illness HPI The patient is a 51-year-old male brought in by ambulance for back pain. He was seen in this emergency department twice today for the same complaint and discharged both times. He states that he meant to go to another hospital. He states the pain is so severe he cannot walk. I physically saw the patient walking outside approximately one hour prior to this and nursing staff said they saw the patient walking around after he was discharged the previous times. Pain is a 10 out of 10 sharp sensation to the mid lower back. Worse with movement. He denies any numbness or tingling. He denies other symptoms Allergies: Coded Allergies: No Known Allergies (Unverified , 07/05/12) Patient History Past Medical History: see triage record Pertinent Family History: none Reviewed Nursing Documentation: PMH: Agreed, PSxH: Agreed Nursing Documentation-PM Past Medical History: No Stated History Hx Cardiac Problems: No Hx Cancer: No Hx Gastrointestinal Problems: Yes Hx Neurological Problems: Yes - foot drop chronic back pain Hx Peripheral Neuropathy: Yes Review of Systems All Other Systems: negative except mentioned in HPI Physical Exam Vital Signs Date Time Temp Pulse Resp B/P (MAP) Pulse Ox O2 Delivery O2 Flow Rate FiO2 06/11/17 17:15 80 15 110/90 99 Room Air Sp02 EP Interpretation: reviewed, normal General Appearance: no apparent distress, alert, GCS 15, non-toxic Head: normocephalic, atraumatic Eyes: bilateral eye normal inspection, bilateral eye PERRL ENT: hearing grossly normal, normal pharynx, no angioedema, normal voice Neck: full range of motion, supple/symm/no masses Musculoskeletal: back normal, gait/station normal, normal range of motion Neurologic: alert, oriented x3, responsive, motor strength/tone normal, sensory intact, speech normal Psychiatric: judgement/insight normal, memory normal, mood/affect normal, no suicidal/homicidal ideation Skin: normal color, no rash, warm/dry, well hydrated Medical Decision Making PA Attestation Dr. Betts is my supervising physician. Patient management was discussed with my supervising physician Diagnostic Impression: Primary Impression: Chronic pain Qualified Codes: G89.29 - Other chronic pain ER Course The patient is a 51-year-old male brought in by ambulance for back pain. Ddx considered include but not limited to lumbar strain, degenerative disease, epidural abscess, cauda equina syndrome, chronic pain, narcotic dependency. PE: NAD The patient is sitting in chair. No tenderness to palpation of the midline spine. No step-offs. No obvious deformity. Full active range of motion is intact Normal gait. The patient was told he needs to follow up with primary physician for further evaluation and treatment of pain. He states that he wants a sandwich. He will be discharged home Last Vital Signs Date Time Temp Pulse Resp B/P (MAP) Pulse Ox O2 Delivery O2 Flow Rate FiO2 06/11/17 18:50 74 15 114/92 99 Room Air Status: improved Disposition: HOME, SELF-CARE Condition: Improved Referrals: NOT CHOSEN IPA/MD,REFERRING (PCP) Patient Instructions: Back Pain, Adult Additional Instructions: I discussed my findings with the patient. All questions and concerns have been answered. Treatment and medication compliance have been addressed. I advised the patient that they need to follow up with primary doctor for further evaluation. Return to ED if symptoms worsen, new symptoms arise, or if needed for any reason. Patient verbalized understanding of discharge instructions. JAMILA BOWER Jun 11, 2017 21:14
== END 2017-06-11 18:30 | disposition home or self-care (01) ==
LOC: EDBD 17:19 → EMR 17:25
DX: G89.29 Other chronic pain (principal); M54.5 Low back pain; M21.379 Foot drop, unspecified foot; G62.9 Polyneuropathy, unspecified
CPT/HCPCS: 99282